=== PATIENT | female | born 1965 | race Caucasian/White ===

== ENCOUNTER 2024-04-02 16:28 | Outpatient (RCR) | payer OTHER, SELFPAY | END 2024-04-02 23:59 | disposition home or self-care (01) | LOC: RPT 16:28 | PROVIDERS: ATTENDING PHYSICIAN Specialist; FAMILY PHYSICIAN Family Medicine | DX: Z47.89 Encounter for other orthopedic aftercare (principal); M25.561 Pain in right knee | CPT/HCPCS: 97110; 97161 ==

== ENCOUNTER 2024-04-23 15:54 | Outpatient (RCR) | payer OTHER, SELFPAY | END 2024-04-23 23:59 | disposition home or self-care (01) | LOC: RPT 15:54 | PROVIDERS: ATTENDING PHYSICIAN Specialist; FAMILY PHYSICIAN Family Medicine | DX: M25.561 Pain in right knee (principal); Z73.6 Limitation of activities due to disability | CPT/HCPCS: 97110; 97530 ==

== ENCOUNTER → 2024-09-04 19:30 | Outpatient (REF) | payer OTHER, SELFPAY | LOC: WDC 19:30 | PROVIDERS: ATTENDING PHYSICIAN Family Medicine | DX: Z12.31 Encounter for screening mammogram for malignant neoplasm of breast (principal) | CPT/HCPCS: 77063; 77067 ==

== ENCOUNTER 2024-11-25 12:49 | Emergency (ER) | payer OTHER, SELFPAY ==
[2024-11-25 12:51] VITALS: BP 148/120
[2024-11-25 14:13] VITALS: BP 161/92
--- NOTE | 2024-11-25 14:53 | ED.GENMED ---
History of Present Illness
General
Chief Complaint: Headache
Source: patient
Exam Limitations: none
Time Seen by Provider: 11/25/24 14:31
History of Present Illness
History of Present Illness:
59-year-old female with history [id number] diabetes and hyperlipidemia presents headache that started on a mild basis when she got up in the middle the night to go to the bathroom. She got up later in the morning and had more of a severe
headache to the back of her head. This was preceded by runny nose cough and congestion. She is not treated for hypertension but her blood pressure was elevated at triage. No vision change. She is nauseous without vomiting. No fever or neck
pain. No chest pain or shortness of breath. No other complaints at this time
Past History
Past History
ED Past Medical History: Hypercholesterolemia and Other (obesity)
ED Past Surgical History: Gynecological
Social History
Tobacco: Non-smoker
Alcohol: None
Personal:
Living: with family
Phy Exam
Physical Exam
Physical Exam:
General: Well-appearing female no acute respiratory distress
HEENT: Normocephalic atraumatic pupils equal round reactive to light extract motions intact
Heart: Regular rate and rhythm no murmurs
Lungs: Clear no wheeze or rales
Neurologic exam: Alert and oriented extract motions are intact conversing appropriately no facial asymmetry dysarthria or aphasia
Musculoskeletal exam: No neck tenderness good range of motion of the cervical spine
Course
Orders/Labs/Results
Orders:
Orders
11/25/24 12:58
CT Head W/o Iv Contrast Urgent
Comment:
Reason For Exam: posterior headache since this morning
11/25/24 14:48
0.9% Sodium Chloride 1000 ml [Nss] 1,000 ml IV BOLUS
Diphenhydramine [Benadryl] 25 mg IV NOW STA
Prochlorperazine [Compazine] 10 mg IV NOW STA
11/25/24 15:04
COVID-19 Antigen Urgent
Source: Nasal Swab
Complete Blood Count/With Diff Urgent
Comprehensive Metabolic Panel Urgent
Influenza A+B Rapid Molecular Urgent
ANGIE Source: Nasal Swab
Specimen Description:
11/25/24 17:03
Metoprolol [Lopressor] 5 mg IV NOW STA
11/25/24 19:23
Ketorolac [Toradol] 15 mg IV NOW STA
Abnormal Lab Results
11/25/24
15:04
Abs Immat Gran (auto) 0.1 H 10^3/uL
(0-0.05)
Creatinine 0.4 L mg/dL
(0.6-1.0)
Glucose 109 H mg/dl
(70-99)
11/25/24 15:04
11/25/24 15:04
Vital Signs
Initial and Last Documented VS:
Initial Vital Signs
Temp Pulse Resp BP Pulse Ox
98.3 F 93 16 148/120 96
11/25/24 12:51 11/25/24 12:51 11/25/24 12:51 11/25/24 12:51 11/25/24 12:51
Last Documented Vital Signs
Temp Pulse Resp BP Pulse Ox
98.3 F 87 18 159/95 97
11/25/24 12:51 11/25/24 18:19 11/25/24 18:19 11/25/24 18:19 11/25/24 18:19
MDM/Problems Addressed
Differential Diagnosis Includes:
Headache seems to be gradually worsening as this started off on a mild basis going to the bathroom in the middle the night but got worse by the time she woke up. Normal neurologic exam. Preceded by URI symptoms. Question viral related etiology
versus migraine. No trauma. CT of the head ordered through triage was negative for acute finding. Will check labs treat symptomatically and reassess. Patient does not describe sudden onset headache
*Critical Care Note
Total Time (30-74mins, 75-104mins- exclusive of procedures): Not Applicable
Update Note
Update Note:
Patient received initial migraine cocktail with little relief but then received Toradol after CT was negative. Feeling much better now resting in sleeping. She did require dose of Lopressor IV. Blood pressure has been acceptable since then.
Recommend she follow-up with her family doctor for blood pressure recheck. No signs of fever to suggest meningitis. Patient describes a gradual onset headache. Do not suspect intracranial hemorrhage. Stable for discharge
ED Attending Note
-
Portions of this chart may have been created with voice recognition software.� Occasional wrong word or��sound alike� substitutions may have occurred due to the inherent limitations of voice recognition software.
Discharge Plan
Departure
Patient Disposition: Home (Routine Discharge)
Date of Disposition: 11/25/24
Time of Disposition: 20:45
Patient with high blood pressure during this ER visit?: No
Discharge Problem:
Headache
Instructions: Headache, Adult (DC)
Prescriptions:
No Action
atorvastatin [Lipitor] 10 MG tablet
10 mg PO HS
hydrocodone-homatropine [Hycodan (with homatropine)] 5 ML syrup
5 ml PO Q4HPRN PRN (Reason: cough) Qty: 120 0RF
hydrocodone-homatropine [Hycodan (with homatropine)] 5 ML syrup
5 ml PO Q4HPRN PRN (Reason: severe cough) Qty: 120 0RF
Referrals:
Myah Guerrier MD [Family Provider] -
Activity Restrictions/Additional Instructions:
Rest. Use ibuprofen or Tylenol for pain. Follow-up with your doctor for blood pressure recheck. Return if needed otherwise
Interventions
Interventions:
*Risk Screen - Suicide Last Done: 11/25/24 12:51
*General Assessment Last Done: 11/25/24 12:51
*Neglect/Abuse Screening Last Done: 11/25/24 12:51
ED- Fall Risk Assessment Last Done: 11/25/24 20:35
*ED COVID-19 Vaccine History Last Done: 11/25/24 12:51
ED- Neurological Assessment Last Done: 11/25/24 15:24
Discharge Date and Time
Print Language: SLOVENIAN
[2024-11-25] MEDS: NSS 1000 IV (15:06)
[2024-11-25] MEDS: COMPAZINE 10 MG IV (15:08)
[2024-11-25] MEDS: BENADRYL 25 MG IV (15:09)
[2024-11-25 15:23] LABS: % Basophils 0.9 % (0-2); % Eosinophils 3.1 % (0-6); % Immature Granulocytes 0.5 % (0-0.5); % Lymphocytes 29.1 % (20.5-51.1); % Monocytes 5.9 % (1.7-9.3); % Neutrophils 60.5 % (42.2-75.2); Absolute Basophils 0.1 10^3/uL (0-0.2); Absolute Eosinophils 0.3 10^3/uL (0-0.7); Absolute Immature Granulocytes 0.1 10^3/uL (0-0.05); Absolute Monocytes 0.6 10^3/uL (0.1-0.6); Absolute Neutrophils 6.2 10^3/uL (1.4-6.5); Hematocrit 38.2 % (37.0-47.0); Hemoglobin 13.3 g/dL (12.0-16.0); Mean Corp Hgb Conc. 34.8 g/dL (33.0-37.0); Mean Corpuscular Hgb 28.9 pg (27.0-31.0); Mean Corpuscular Volume 82.9 fL (81.0-99.0); Mean Platelet Volume 9.3 fL (7.4-10.4); Nucleated Red Blood Cells % 0 %; Platelet Count 268 10^3/uL (130-400); Red Blood Cell Count 4.61 10^6/uL (4.20-5.40); Red Cell Dist. Width 12.2 % (11.5-14.5); White Blood Cell Count 10.2 10^3/uL (4.8-10.8)
[2024-11-25 15:39] LABS: ALT (SGPT) 28 U/L (0-35); AST (SGOT) 23 U/L (14-36); Albumin 4.4 g/dl (3.5-5.0); Alkaline Phosphatase 71 U/L (38-126); Blood Urea Nitrogen 10 mg/dl (7-17); Calcium 9.1 mg/dl (8.4-10.2); Carbon Dioxide 26 mmol/L (22-30); Chloride 104 mmol/L (98-107); Glucose 109 mg/dl (70-99); Potassium 3.8 mmol/L (3.5-5.1); Sodium 140 mmol/L (135-145); Total Bilirubin 0.3 mg/dl (0.2-1.3); Total Protein 7.2 g/dl (6.3-8.2); eGFR > 60.00
[2024-11-25 15:40] LABS: COVID-19 Antigen Negative (Negative)
[2024-11-25] MEDS: LOPRESSOR 5 MG IV (17:09)
[2024-11-25 17:16] VITALS: BP 170/104
[2024-11-25 18:19] VITALS: BP 159/95
[2024-11-25] MEDS: TORADOL 15 MG IV (19:33)
--- NOTE | 2024-11-25 20:33 | EDRN ---
Patient is sleeping when I went to check on her JOS Cain aware.
== END 2024-11-25 20:56 | disposition home or self-care (01) ==
LOC: EMR 12:49
PROVIDERS: Physician Assistant; EMERGENCY PHYSICIAN Emergency Medicine; FAMILY PHYSICIAN Family Medicine
DX: R51.9 Headache, unspecified (principal); E11.9 Type 2 diabetes mellitus without complications; E78.00 Pure hypercholesterolemia, unspecified; E66.9 Obesity, unspecified
CPT/HCPCS: 99284; 96374; 96375; 70450; 80053; 85025; 87502; 87811

== ENCOUNTER → 2024-11-28 16:22 | Outpatient (REF) | payer OTHER, SELFPAY | LOC: RAD 16:22 | PROVIDERS: ATTENDING PHYSICIAN Family Medicine | DX: J40 Bronchitis, not specified as acute or chronic (principal); R06.2 Wheezing; R91.8 Other nonspecific abnormal finding of lung field | CPT/HCPCS: 71046 ==

== ENCOUNTER → 2025-06-24 15:26 | Outpatient (REF) | payer OTHER, SELFPAY | LOC: RAD 15:26 | PROVIDERS: ATTENDING PHYSICIAN Family Medicine | DX: M54.50 Low back pain, unspecified (principal) | CPT/HCPCS: 72110 ==

== ENCOUNTER → 2025-09-08 18:19 | Outpatient (REF) | payer OTHER, SELFPAY | LOC: WDC 18:19 | PROVIDERS: ATTENDING PHYSICIAN Family Medicine | DX: Z12.31 Encounter for screening mammogram for malignant neoplasm of breast (principal) | CPT/HCPCS: 77063; 77067 ==

== ENCOUNTER → 2025-10-17 15:48 | Outpatient (REF) | payer OTHER, SELFPAY | LOC: MRI 3T 15:48 | PROVIDERS: ATTENDING PHYSICIAN Family Medicine | DX: M51.34 Other intervertebral disc degeneration, thoracic region (principal); R93.7 Abnormal findings on diagnostic imaging of other parts of musculoskeletal system | CPT/HCPCS: 72157; A9575 ==